=== PATIENT | female | born 1990 | race African-American/Black ===

== ENCOUNTER 2024-11-21 07:51 | Emergency (ER) | payer MEDICAID ==
[~2024-11-21] VITALS: Ht 175.3 cm; Wt 62.5 kg
[2024-11-21 07:57] VITALS: O2SAT 98
[2024-11-21] MEDS: IBUPROFEN 400MG TABLET PO ONE (09:07)
[2024-11-21] MEDS: VISCOUS LIDOCAINE 2% 15 ML UDC MM STA (09:12)
[2024-11-21 11:15] VITALS: BP 114/73; PULSE 70; RESP 18; TEMP 37; O2SAT 98
== END 2024-11-21 11:26 | disposition home or self-care (01) ==
LOC: ER 08:36
DX: R05.9 Cough, unspecified (principal); Z20.822 Contact with and (suspected) exposure to COVID-19
CPT/HCPCS: 87070; 87426; 87430; 87804; 99283